=== PATIENT | female | born 1940 | race Caucasian/White ===

== ENCOUNTER 2018-01-21 13:13 | Emergency (ER) | END 2018-01-21 14:09 | disposition home or self-care (01) ==

== ENCOUNTER 2018-02-05 14:02 | Inpatient (IN) | payer MEDICARE, OTHER ==
[~2018-02-05] VITALS: Ht 165.1 cm; Wt 57.6 kg
[~2018-02-05 14:02] MED LIST: HYDR-4011 PO
[2018-02-05] MEDS ORDERED: SOD CHLORIDE 0.9% 1,000 ML IV STA (16:19)
[2018-02-05] MEDS ORDERED: ONDANSETRON 4 MG INJ IV STA (16:19)
[2018-02-05] MEDS ORDERED: CELE100C PO (17:48)
[2018-02-05] MEDS ORDERED: PANT40TA4 PO (17:49)
[2018-02-05] MEDS ORDERED: CITA20TA8 PO (17:49)
[2018-02-05] MEDS ORDERED: ROSU10TA55 PO (17:50)
[2018-02-05] MEDS ORDERED: AMIT25TA9 PO (17:50)
[2018-02-05] MEDS ORDERED: MED4DP PO (17:51)
[2018-02-05] MEDS ORDERED: LORA1TAB PO (17:51)
[2018-02-05] MEDS ORDERED: PREG50CA PO (17:52)
[2018-02-05] MEDS ORDERED: CEFTRIAXONE 1 GM/50 ML (PMX) 50 ML IVPB ONE (18:00)
--- NOTE | 2018-02-05 18:08 | ERD ---
ER Documentation Chief Complaint Chief Complaint fall this AM, dizziness, slurredspeech, confusion LWT - 2wks ago per dtr HPI 77-year-old woman presents with dizziness, generalized weakness, and confusion for the last 2-3 days. Patient also complains of left shoulder pain after bumping into the door a few times over the last couple days because of dizziness and weakness. About 3 days ago patient was given a prescription for [place] as well as pregabalin which she has been using for recent back pain. She has not used opioid analgesics for over 3 years and is generally opioid jennifer. She denies recent head or neck injury, no vomiting or diarrhea, no chest pain or shortness of breath ROS All systems reviewed and are negative except as per history of present illness. Medications Home Meds Active Scripts Hydrocodone/Acetaminophen ([place] 5-325 Tablet) 1 Each Tablet, 1 TAB PO Q6H PRN for PAIN, #7 TAB Prov:ERIKA MARSH MD 01/21/18 Reported Medications Diphenhydramine Hcl* (Benadryl*) 25 Mg Cap, 25 MG PO Q6H PRN for ITCHING, CAP 02/05/18 Pregabalin* (Lyrica*) Unknown Strength Capsule, PO, CAP 02/05/18 Methylprednisolone* (Medrol* DOSE PACK) 4 Mg/Dose-Pack Tab.ds.pk, 4 MG PO . DIRECTED, PACKET 02/05/18 Lorazepam* (Lorazepam*) 1 Mg Tablet, 1 MG PO HS PRN for NEEDED, #30 TAB 02/05/18 Rosuvastatin Calcium* (Crestor*) 10 Mg Tablet, 10 MG PO QHS, #30 TAB 02/05/18 Amitriptyline Hcl* (Amitriptyline Hcl*) 25 Mg Tablet, 25 MG PO QHS, #30 TAB 02/05/18 Citalopram Hydrobromide* (Citalopram Hydrobromide*) 20 Mg Tablet, 20 MG PO DAILY, #30 TAB 02/05/18 Pantoprazole* (Pantoprazole*) 40 Mg Tablet.dr, 40 MG PO AC BREAKFAST, TAB 02/05/18 Celecoxib* (Celebrex*) 100 Mg Capsule, 100 MG PO DAILY, CAP 02/05/18 Allergies Allergies: Coded Allergies: No Known Allergy (Unverified , 02/05/18) PMhx/Soc History of Surgery: Yes (appendectomy,cholecystectomy) Anesthesia Reaction: No Hx Neurological Disorder: No Hx Respiratory Disorders: No Hx Cardiac Disorders: Yes (hypercholesterolemia) Hx Psychiatric Problems: Yes (anxiety) Hx Miscellaneous Medical Probl: Yes (sciatica,herniated disc,dm,gerd) Hx Alcohol Use: No Hx Substance Use: No Hx Tobacco Use: No Smoking Status: Never smoker FmHx Family History: No diabetes Physical Exam Vitals Vital Signs Date Temp Pulse Resp B/P (MAP) Pulse Ox O2 O2 Flow FiO2 Time Delivery Rate 02/05/18 97.7 99 20 92/50 64 100 14:09 Physical Exam Const: No acute distress, appears dehydrated, afebrile HEENT: Dry mucous membranes, pupils equal round reactive to light, no cervical spine deformity or tenderness Resp: Clear to auscultation bilaterally Cardio: Regular rate and rhythm, no murmurs Abd: Soft, non tender, non distended. Normal bowel sounds Skin: No petechiae or rashes Back: No midline or flank tenderness Ext: No cyanosis, or edema Neur: Awake and alert x3, able to answer simple questions and follows simple commands, moving all extremities, no facial asymmetry Psych: Normal Mood and Affect Result Diagram: 02/05/18 1602 02/05/18 1602 Results 24 hrs Laboratory Tests Test 02/05/18 16:02 02/05/18 16:35 White Blood Count 21.0 10^3/ul Red Blood Count 3.50 10^6/ul Hemoglobin 11.6 g/dl Hematocrit 35.4 % Mean Corpuscular Volume 101.1 fl Mean Corpuscular Hemoglobin 33.1 pg Mean Corpuscular Hemoglobin Concent 32.8 g/dl Red Cell Distribution Width 13.6 % Platelet Count 311 10^3/UL Mean Platelet Volume 10.3 fl Immature Granulocytes % 0.700 % Neutrophils % 79.5 % Lymphocytes % 11.1 % Monocytes % 7.9 % Eosinophils % 0.5 % Basophils % 0.3 % Nucleated Red Blood Cells % 0.0 /100WBC Immature Granulocytes # 0.150 10^3/ul Neutrophils # 16.7 10^3/ul Lymphocytes # 2.3 10^3/ul Monocytes # 1.7 10^3/ul Eosinophils # 0.1 10^3/ul Basophils # 0.1 10^3/ul Nucleated Red Blood Cells # 0.0 10^3/ul Prothrombin Time 13.3 Sec Prothrombin Time Ratio 1.0 INR International Normalized Ratio 1.00 Activated Partial Thromboplast Time 26.2 Sec Sodium Level 134 mmol/L Potassium Level 4.2 mmol/L Chloride Level 97 mmol/L Carbon Dioxide Level 27 mmol/L Anion Gap 10 Blood Urea Nitrogen 22 mg/dl Creatinine 1.47 mg/dl Est Glomerular Filtrat Rate mL/min mL/min Glucose Level 108 mg/dl Calcium Level 9.4 mg/dl Total Bilirubin 0.4 mg/dl Direct Bilirubin 0.00 mg/dl Indirect Bilirubin 0.4 mg/dl Aspartate Amino Transf (AST/SGOT) 51 IU/L Alanine Aminotransferase (ALT/SGPT) 27 IU/L Alkaline Phosphatase 87 IU/L Troponin I < 0.012 ng/ml Total Protein 7.6 g/dl Albumin 3.9 g/dl Globulin 3.70 g/dl Albumin/Globulin Ratio 1.05 Lipase 89 U/L Urine Color YELLOW Urine Clarity SLIGHTLY CLOUDY Urine pH 5.0 Urine Specific [place] 1.023 Urine Ketones NEGATIVE mg/dL Urine Nitrite NEGATIVE mg/dL Urine Bilirubin NEGATIVE mg/dL Urine Urobilinogen NEGATIVE mg/dL Urine Leukocyte Esterase NEGATIVE Jose/ul Urine Microscopic RBC 3 /HPF Urine Microscopic WBC 3 /HPF Urine Bacteria FEW /HPF Urine Hyaline Casts FEW /HPF Urine Mucus FEW /HPF Urine Hemoglobin NEGATIVE mg/dL Urine Glucose NEGATIVE mg/dL Urine Total Protein 1+ mg/dl Current Medications Medications Dose Sig/Juan Start Time Status Last (Trade) Ordered Route PRN Stop Time Admin Dose Reason Admin Sodium 1,000 ml @ Q30M STAT 02/05/18 DC 02/05/18 Chloride 2,000 mls/hr IV 16:19 16:48 02/05/18 16:48 Ondansetron 4 mg ONCE STAT 02/05/18 DC 02/05/18 HCl (Zofran IV 16:19 16:48 Inj) 02/05/18 16:21 Ceftriaxone 50 ml @ ONCE ONCE 02/05/18 DC 02/05/18 Sodium 100 mls/hr IVPB 18:00 17:58 02/05/18 18:29 Procedures/MDM IV line was established patient was placed on court recording monitor rhythm strip revealed a sinus rhythm at about 90 bpm with upright P and T waves. Patient was afebrile EKG performed, read by me revealed a normal sinus rhythm at 92 bpm, normal axis, narrow QRS complex, no concerning ST elevations or depressions noted. CT brain was negative for acute bleed mass or shift. Please refer to radiologist dictation for full report. Chest X-ray 1V Interpreted by me: Soft Tissue: No acute abnormalities Bones: No acute abnormalities Mediastinum/Cardiac Silhouette/Lungs: No acute abnormalities I administered 2 L normal saline IV for dehydration and Zofran 4 mg IV for complaints of dizziness. Urine analysis was concerning for urinary tract infection and may explain her mild recent confusion so I treated her here with ceftriaxone 1 g IV. CBC reveals a leukocytosis of 21, electrolytes revealed dehydration with a BUN/creatinine of 22/1.5, liver function tests normal, troponin negative. Lactic acid level was low and I do not suspect sepsis. This is an elderly otherwise healthy patient presenting with recent dizziness, confusion, weakness. She was also dehydrated. She recently started using [place] and pregabalin multiple times daily. Both of these medications can be contributing to her symptoms. Patient will be admitted to telemetry setting for continued IV hydration and antibiotics Departure Diagnosis: Primary Impression: Sprain of left shoulder Encounter type: initial encounter Shoulder sprain type: unspecified sprain Qualified Codes: S43.402A - Unspecified sprain of left shoulder joint, initial encounter Additional Impressions: Dehydration Acute encephalopathy Acute UTI Opioid overdose Encounter type: initial encounter Injury intent: accidental or unintentional Qualified Codes: T40.2X1A - Poisoning by other opioids, accidental (unintentional), initial encounter Condition: SHANAE Whiting MD Feb 05, 2018 18:08
--- NOTE | 2018-02-05 19:54 | HP ---
Date/Time of Note Date/Time of Note DATE: 02/05/18 TIME: 19:54 Assessment/Plan VTE Prophylaxis SCD applied (from Nsg): Yes Pharmacological prophylaxis: NA/contraindicated Pharm contraindication: low risk/ambulating Lines/Catheters IV Catheter Type (from Nrsg): Saline Lock Assessment/Plan Hospital Course This is a 77-year-old female being admitted to the [facility] floor for: #1 altered mental status: At the current time patient appears to be alert and oriented x3. I did not assess her gait given her current pain at the current time. Patient is adamant that she is doing fine and that she is just stressed because her is admitted to [place] and is not doing well. At the current time I have discussed with her regarding her symptoms and what her [id number] reported. At the current time I will continue her [place] as she has pain in her left lower quadrant as well as secondary to her sciatica. I will hold off on giving her Benadryl and the pregabalin at the current time. We will reassess her pain and mental status in the a.m. At the current time though she appears to be at baseline. We will get a PT evaluation. #2 abdominal pain: Patient does have suprapubic tenderness palpation as well as left lower quadrant tenderness to palpation. She was diagnosed with urinary tract infection however her urinalysis was negative for nitrites and negative for leuks. I will obtain a CT of the abdomen and pelvis with IV contrast to further assess. She did receive ceftriaxone in the ED at the current time I will continue this. Blood cultures and urine cultures pending. #3 questionable UTI: Patient was started on ceftriaxone in the ED for UTI, however her urinalysis appears to be largely normal. However she did have a significant white blood cell count of 21,000. #4 acute kidney injury: Likely prerenal etiology secondary to mild dehydration. At the current time will monitor kidney function. She will be getting IV fluid hydration. Avoid nephrotoxic agents. #5 leukocytosis: Patient did present with an elevated white blood cell count of 21,000 and is being treated presumably for urinary tract infection. Urinalysis though appears largely normal. Will check an ESR and CRP level. I will also order a CT of the abdomen pelvis with IV contrast given her left lower quadrant pain. #6 diabetes mellitus: We will check a hemoglobin A1c, insulin sliding scale #7 depression: Patient's daughter was apparently murdered according to her which has affected her greatly. At the current time we will continue her antidepressants, I will hold though Benadryl and pregabalin at the current time given the initial symptoms of what brought her to the ER. I am hesitant to even continue her [place] however given the fact that she is reporting significant pain secondary to her sciatica I will give a try at the current time. We will put fall precautions for as well. PT evaluation. #8 sciatica: At the current time she states the O[place]ander is what helps her the most I will continue her on this while holding her Benadryl as well as her pregabalin. Will consult pain management Dr. Parikh. #9 DVT GI prophylaxis: SCDs, no GI prophylaxis indicated Further treatment strategy will be implemented as per the clinical course Result Diagram: 02/05/18 1602 02/05/18 1602 Results 24hrs Laboratory Tests Test 02/05/18 16:02 02/05/18 16:35 White Blood Count 21.0 H Red Blood Count 3.50 L Hemoglobin 11.6 L Hematocrit 35.4 L Mean Corpuscular Volume 101.1 H Mean Corpuscular Hemoglobin 33.1 H Mean Corpuscular Hemoglobin Concent 32.8 Red Cell Distribution Width 13.6 Platelet Count 311 Mean Platelet Volume 10.3 Immature Granulocytes % 0.700 H Neutrophils % 79.5 H Lymphocytes % 11.1 L Monocytes % 7.9 Eosinophils % 0.5 Basophils % 0.3 Nucleated Red Blood Cells % 0.0 Immature Granulocytes # 0.150 H Neutrophils # 16.7 H Lymphocytes # 2.3 Monocytes # 1.7 H Eosinophils # 0.1 Basophils # 0.1 Nucleated Red Blood Cells # 0.0 Prothrombin Time 13.3 Prothrombin Time Ratio 1.0 INR International Normalized Ratio 1.00 Activated Partial Thromboplast Time 26.2 Sodium Level 134 L Potassium Level 4.2 Chloride Level 97 Carbon Dioxide Level 27 Anion Gap 10 Blood Urea Nitrogen 22 H Creatinine 1.47 H Est Glomerular Filtrat Rate mL/min Glucose Level 108 Calcium Level 9.4 Total Bilirubin 0.4 Direct Bilirubin 0.00 Indirect Bilirubin 0.4 Aspartate Amino Transf (AST/SGOT) 51 H Alanine Aminotransferase (ALT/SGPT) 27 Alkaline Phosphatase 87 Troponin I < 0.012 Total Protein 7.6 Albumin 3.9 Globulin 3.70 H Albumin/Globulin Ratio 1.05 Lipase 89 Urine Color YELLOW Urine Clarity SLIGHTLY CLOUDY A Urine pH 5.0 Urine Specific [place] 1.023 Urine Ketones NEGATIVE Urine Nitrite NEGATIVE Urine Bilirubin NEGATIVE Urine Urobilinogen NEGATIVE Urine Leukocyte Esterase NEGATIVE Urine Microscopic RBC 3 Urine Microscopic WBC 3 Urine Bacteria FEW A Urine Hyaline Casts FEW A Urine Mucus FEW A Urine Hemoglobin NEGATIVE Urine Glucose NEGATIVE Urine Total Protein 1+ H HPI/ROS Admit Date/Time Admit Date/Time Feb 05, 2018 at 18:44 Hx of Present Illness Chief complaint: Dizziness generalized weakness, confusion 77-year-old woman presents with dizziness, generalized weakness, and confusion for the last 2-3 days. Patient also complains of left shoulder pain after bumping into the door a few times over the last couple days because of dizziness and weakness. About 3 days ago patient was given a prescription for [place] as well as pregabalin which she has been using for recent back pain. She has not used opioid analgesics for over 3 years and is generally opioid jennifer. She denies recent head or neck injury, no vomiting or diarrhea, no chest pain or shortness of breath. After being admitted patient continued to demand her O[place] as well as her Benadryl and Ativan as she has been dealing with a lot of anxiety all her life secondary to the of her daughter as well as regarding her sciatica. Patient was very upset that she was not receiving all of her medications. I had an extensive discussion with the patient at the bedside at [facility] time patient was alert and oriented x3. She did report that she has been under stress as she is worried about her who is in [place]. At the current time she does appear awake and alert and at what appears to be her baseline. I have continue the Ostrander for her, however I will hold off on the pregabalin at the current time and the Benadryl. Allergies: NKDA Medications: See APR ROS Const: As per HPI Eyes : No pain discharge or redness or change in visual acuity ENT: No pain, sore throat, congestion, congestion, dysphagia or discharge Respiratory: No shortness of breath, cough, sputum, wheezing, or pleuritic pain Cardiovascular: No chest pain, palpitation, PND, or edema GI : no change in appetite, abdominal pain, nausea, vomiting, diarrhea, constipation, or change in the color his stool Genitourinary: No dysuria, hematuria, flank pain , discharge or CVA tenderness Musculoskeletal: As per HPI Skin: No rash, bruising or hives Neuro: As per HPI Endocrine: No polyuria, polydipsia, temperature intolerance Psych: No hallucination, depression, anxiety or suicidal ideation PMH/Family/Social Past Medical History Sciatica, anxiety, depression Coded Allergies: No Known Allergy (Unverified , 02/05/18) Past Surgical History Hysterectomy, appendectomy Family History Significant Family History: no pertinent family hx Social History Alcohol Use: none Smoking Status: Never smoker Drug Use: none Exam/Review of Systems Vital Signs Vitals Vital Signs Date Temp Pulse Resp B/P (MAP) Pulse Ox O2 O2 Flow FiO2 Time Delivery Rate 02/05/18 92 13 120/49 100 Nasal 3.0 19:20 (72) Cannula 02/05/18 97.7 14:09 Exam Exam General: Patient is a pleasant female currently lying in bed in distress from her left lower quadrant pain as well as her sciatic nerve pain HEENT: Atraumatic, normocephalic. The pupils are equal, round and reactive. Extraocular motor are intact, mucous membranes dry Neck: Supple with full range of motion. No rigidity or meningismus Chest: Nontender Lungs: Clear to auscultation bilaterally no crackles rales or wheezing Heart: Normal S1-S2, Regular rhythm and rate. No murmur, S3, or S4 Abdomen: Soft , tenderness to palpation over the left abdominal quadrant as well as suprapubic area nondistended , bowel sounds are present. No guarding no rebound tenderness , Extremities: Normal to inspection, no edema no cyanosis Musculoskeletal: Right positive straight leg test Neurologic: Normal mental status, alert and oriented x3, speech normal, cranial nerves II through XII are intact, motor and sensory are intact, Additional Comments PROCEDURE: CT head CLINICAL INDICATION: Headache TECHNIQUE: Contiguous 2.5 mm axial images were obtained from the vertex to the skull base. No intravenous contrast was administered. The calculated dose length product (DLP) = 634.23 mGy-cm. CTDlvol = 39.46 mGy. One or more of the following dose reduction techniques were used: Automated exposure control, adjustment of the mA and or KV according to patient size, or use of iterative reconstruction technique. DICOM images are available. COMPARISON: None FINDINGS: There is a vague area of low attenuation involving the right frontal deep white matter which may represent subacute to old area of infarction. There is no acute intracranial hemorrhage or acute territorial infarct. No mass or mass effect is seen on this noncontrast study. There is age appropriate cortical and central atrophy. Ventricles are normal in size for the degree of atrophy. Mild to moderate small vessel ischemic changes in the periventricular white matter. Visualized paranasal sinuses are normally aerated. The bony calvarium is u nremarkable. There is moderate bilateral carotid calcification. IMPRESSION: 1. No acute intracranial hemorrhage or acute territorial infarct. 2. Questionable subacute to old right frontal deep white matter infarct. If indicated this can be better evaluated with MRI 3. Age related atrophy and small vessel ischemic change. 4. Cerebral arterial sclerosis RPTAT: HH .Wesley Sunshine MD, MD Date Time Electronically viewed and signed by .Wesley Sunshine MD, MD on 02/05/2018 16:51 .W/ CC: SHANAE HODGSON MD [id number] PROCEDURE: XR Chest. CLINICAL INDICATION: Chest pain TECHNIQUE: Single frontal radiograph of the chest. COMPARISON: No prior FINDINGS: The lungs are clear. No pleural effusion. No pneumothorax. The cardiomediastinal silhouette is unremarkable. Vascular calcifications of the aorta are present compatible with ather osclerosis. IMPRESSION: No acute air space infiltrates. RPTAT: AADD .Edd Lopez MD, MD Date Time Electronically viewed and signed by .Edd Lopez MD, on 02/05/2018 16:42 .B/ CC: SHANAE HODGSON MD [id number] SCOOBY GARNER Feb 05, 2018 19:54
[2018-02-05] MEDS ORDERED: ACETAMINOPHEN 325 MG TAB PO PRN (20:00)
[2018-02-05] MEDS ORDERED: NACL 0.9% 3 ML SYG IV SCH (20:00)
[2018-02-05 21:47] VITALS: Ht 165.1 cm; Wt 57.6 kg
[2018-02-05] MEDS ORDERED: BEN25 PO (22:06)
[2018-02-05 22:20] VITALS: BP_SYST 113; BP_SYST 126; BP_DIAS 59; BP_DIAS 60; PULSE 61; PULSE 96; RESP 18
--- NOTE | 2018-02-05 22:36 | NUR ---
Pt admitted onto unit around 1999 for UTI and dizziness. Inventory of pt's belongings done. Oriented pt to room and surroundings. Pictures taken of pt's heels and sacrococcyx. Fall precautions observed.
--- NOTE | 2018-02-06 00:33 | NUR ---
Spoke to Dr Nicole regarding pt's pain. made aware that Tylenol was given at 0017, Dr said it is okay to give [place] now. Will continue to monitor.
[2018-02-06] MEDS: HYDROCODONE/APAP (5/325) TAB PO PRN ×4 (00:41→21:26)
[2018-02-06 02:45] VITALS: BP 136/62; PULSE 103; RESP 18
[2018-02-06] MEDS ORDERED: morphine 4 MG/ML VIAL IV ONE (04:05)
[2018-02-06] MEDS ORDERED: HYDROCODONE/APAP (5/325) TAB PO PRN (04:30)
[2018-02-06] MEDS ORDERED: LORAZEPAM 1 MG TAB PO PRN (04:30)
[2018-02-06] MEDS: PANTOPRAZOLE (EC) 40 MG TAB PO SCH (06:34)
--- NOTE | 2018-02-06 06:46 | NUR ---
VS are stable .Pt A&O x4. Pt c/o pain and medicated with PRN pain med. No acute changes or s/s of respiratory distress throughout shift. Hourly rounding provided. Fall precautions observed with call light within reach. composition worker consult ordered due to pt being sad that her is at [place] by himself and not doing well; pt would like to visit him if possible. Will endorse to oncoming nurse continuity of care.
[2018-02-06 07:59] VITALS: BP 142/65; PULSE 103; RESP 18
[2018-02-06] MEDS ORDERED: CELECOXIB 100 MG CAP PO SCH (09:00)
[2018-02-06] MEDS ORDERED: SOD CHLORIDE 0.9% 100 ML ONE (09:33)
[2018-02-06] MEDS ORDERED: IOHEXOL 300MG/ML 150 ML BTL ONE (09:33)
[2018-02-06] MEDS: CITALOPRAM 20 MG TAB PO SCH (09:36)
--- NOTE | 2018-02-06 10:30 | NUR ---
COMPLETED CT ABDOMEN.
--- NOTE | 2018-02-06 10:54 | PN ---
Date/Time of Note Date/Time of Note DATE: 02/06/18 TIME: 10:53 Assessment/Plan VTE Prophylaxis SCD applied (from Nsg): Yes Pharmacological prophylaxis: heparin Lines/Catheters IV Catheter Type (from Nrsg): [place] Assessment/Plan Result Diagram: 02/06/18 0432 02/06/18 0432 Results 24hrs Laboratory Tests Test 02/05/18 16:02 02/05/18 16:35 02/05/18 20:00 02/05/18 20:29 White Blood 21.0 H Count Red Blood Count 3.50 L Hemoglobin 11.6 L Hematocrit 35.4 L Mean 101.1 H Corpuscular Volume Mean 33.1 H Corpuscular Hemoglobin Mean 32.8 Corpuscular Hemoglobin Conc ent Red Cell 13.6 Distribution Width Platelet Count 311 Mean Platelet 10.3 Volume Immature 0.700 H Granulocytes % Neutrophils % 79.5 H Lymphocytes % 11.1 L Monocytes % 7.9 Eosinophils % 0.5 Basophils % 0.3 Nucleated Red 0.0 Blood Cells % Immature 0.150 H Granulocytes # Neutrophils # 16.7 H Lymphocytes # 2.3 Monocytes # 1.7 H Eosinophils # 0.1 Basophils # 0.1 Nucleated Red 0.0 Blood Cells # Prothrombin 13.3 Time Prothrombin 1.0 Time Ratio INR 1.00 International Normalized Rati o Activated 26.2 Partial Thrombo plast Time Sodium Level 134 L Potassium Level 4.2 Chloride Level 97 Carbon Dioxide 27 Level Anion Gap 10 Blood Urea 22 H Nitrogen Creatinine 1.47 H Est Glomerular Filtrat Rate mL/min Glucose Level 108 Calcium Level 9.4 Total Bilirubin 0.4 Direct 0.00 Bilirubin Indirect 0.4 Bilirubin Aspartate Amino 51 H Transf (AST/SGO T) Alanine 27 Aminotransferas e (ALT/SGPT) Alkaline 87 Phosphatase Troponin I < 0.012 Total Protein 7.6 Albumin 3.9 Globulin 3.70 H Albumin/Globuli 1.05 n Ratio Lipase 89 Urine Color YELLOW Urine Clarity SLIGHTLY CLOUDY A Urine pH 5.0 Urine Specific 1.023 [place] Urine Ketones NEGATIVE Urine Nitrite NEGATIVE Urine Bilirubin NEGATIVE Urine NEGATIVE Urobilinogen Urine Leukocyte NEGATIVE Esterase Urine 3 Microscopic RBC Urine 3 Microscopic WBC Urine Bacteria FEW A Urine Hyaline FEW A Casts Urine Mucus FEW A Urine NEGATIVE Hemoglobin Urine Glucose NEGATIVE Urine Total 1+ H Protein Erythrocyte 40 H Sedimentation Rate Lactic Acid 1.3 Level C-Reactive 26.5 H Protein Test 02/06/18 04:32 White Blood 16.5 #H Count Red Blood Count 2.89 L Hemoglobin 9.6 L Hematocrit 29.3 L Mean 101.4 H Corpuscular Volume Mean 33.2 H Corpuscular Hemoglobin Mean 32.8 Corpuscular Hemoglobin Conc ent Red Cell 13.2 Distribution Width Platelet Count 287 Mean Platelet 10.1 Volume Immature 0.500 H Granulocytes % Neutrophils % 75.6 Lymphocytes % 14.7 L Monocytes % 7.7 Eosinophils % 1.2 Basophils % 0.3 Nucleated Red 0.0 Blood Cells % Immature 0.090 H Granulocytes # Neutrophils # 12.5 H Lymphocytes # 2.4 Monocytes # 1.3 H Eosinophils # 0.2 Basophils # 0.1 Nucleated Red 0.0 Blood Cells # Sodium Level 137 Potassium Level 4.2 Chloride Level 102 Carbon Dioxide 25 Level Anion Gap 10 Blood Urea 17 Nitrogen Creatinine 0.91 Est Glomerular Filtrat Rate mL/min Glucose Level 74 Hemoglobin A1c 5.7 Calcium Level 8.5 Magnesium Level 1.7 Total Bilirubin 0.1 L Direct 0.00 Bilirubin Indirect 0.1 Bilirubin Aspartate Amino 33 Transf (AST/SGO T) Alanine 36 Aminotransferas e (ALT/SGPT) Alkaline 84 Phosphatase Total Protein 5.4 #L Albumin 2.9 #L Globulin 2.50 Albumin/Globuli 1.16 n Ratio Triglycerides 107 Level Cholesterol 114 Level LDL 46 Cholesterol, Calculated HDL Cholesterol 47 Cholesterol/HDL 2.4 Ratio Thyroid 1.680 Stimulating Hormone (TSH) Free Thyroxine 3.33 Index Thyroxine (T4) 7.7 Triiodothyronin 43.3 H e (T3) Uptake Subjective 24 Hr Interval Summary Free Text/Dictation subjective: feels better after clear liquid diet, anxious about 's illness in [place] objective: Constitutional: alert, oriented, elderly, anxious Head: atraumatic, normocephalic Neck: non-tender, supple Respiratory: clear to auscultation Cardiovascular: regular rate and rhythm Gastrointestinal: S/ Lmid and lower quadrant tenderness / ND / +BS Extremities: no edema, good radial pulses assessment and plan: 1. Sepsis with abdominal pain secondary to acute colitis and urinary tract infection 2. Acute colitis likely contributing to #1 -Left-sided, radiology notes concern for possible ischemic colitis -We will get GI consult, stool OB -Continue antibiotics 3. Acute renal insufficiency: Resolved 4. Cholelithiasis without cholecystitis 5. Large hiatal hernia 6. Chronic megaloblastic anemia 7. Mild alteration in mental status, now resolved -Evidence of Chronic versus subacute CVA on CT -Stroke workup to include 2D echo with bubble study, carotid findings, PT eval 8.Depression home meds, monitoring, patient is to be allowed to go visit -her children will be taking her home with them after this Continue supportive care Exam/Review of Systems Vital Signs Vitals Vital Signs Date Temp Pulse Resp B/P (MAP) Pulse Ox O2 O2 Flow FiO2 Time Delivery Rate 02/06/18 98.2 103 18 142/65 97 07:59 (90) 02/05/18 Nasal 3.0 19:20 Cannula Medications Medications Current Medications IV Flush (NS 3 ml) 3 ml PER PROTOCOL IV ; Start 02/05/18 at 20:00 Ondansetron HCl (Zofran Inj) 4 mg Q6H PRN IV NAUSEA AND/OR VOMITING; Start 02/05/18 at 20:00 Acetaminophen (Tylenol Tab) 650 mg Q6H PRN PO PAIN LEVEL 1-3 OR FEVER Last administered on 02/06/18at 00:17; Admin Dose 650 MG; Start 02/05/18 at 20:00 Acetaminophen/ Hydrocodone Bitart ([place] (5/325)) 1 tab Q6H PRN PO MODERATE P AIN LEVEL 4-6 Last administered on 02/06/18at 06:37; Admin Dose 1 TAB; Start 02/06/18 at 00:30 Amitriptyline HCl (Elavil) 25 mg QHS PO ; Start 02/06/18 at 21:00 Celecoxib (Celebrex) 100 mg DAILY PO Last administered on 02/06/18at 08:48; Admin Dose 100 MG; Start 02/06/18 at 09:00 Citalopram Hydrobromide (Celexa) 20 mg DAILY PO Last administered on 02/06/18at 09:36; Admin Dose 20 MG; Start 02/06/18 at 09:00 Acetaminophen/ Hydrocodone Bitart ([place] (5/325)) 1 tab Q6H PRN PO PAIN; Start 02/06/18 at 04:30 Lorazepam (Ativan) 1 mg HS PRN PO NEEDED; Start 02/06/18 at 04:30 Pantoprazole (Protonix Tab) 40 mg AC BREAKFAST PO Last administered on 02/06/18at 06:34; Admin Dose 40 MG; Start 02/06/18 at 07:30 Ceftriaxone Sodium 50 ml @ 100 mls/hr Q24H IVPB ; Start 02/06/18 at 18:00 SILVIA POOLE Feb 06, 2018 10:54
--- NOTE | 2018-02-06 11:00 | NUR ---
PT EVALUATION Therapy day number 1 Evaluation Start Time 11:00 Evaluation End Time 12:00 Evaluation Total Time 60 min Subjective Current complaint of pain Pain Scale NUMERIC Pain Intensity 5 (0-10) Patient Stated Goal for Pain Relief 0 (0-10) Pain Level Comment reports has radicular pain from right buttocks down right LE with WB Exercise Assessment Label Bilat Lower Extremity Exercise Type Active ROM Additional Exercise Comments supine: AP's, quad/glut sets, heelslides; seated: LAQ's Supine to Sit Contact Guard Assist Transfer Sit to Stand Ability Contact Guard Assist Bed Mobility Sit to Supine Contact Guard Assist Sitting Tolerance 10 min Gait Assist Levels Contact Guard Assist Assistive Devices None Front Wheel Walker Ambulation Distance 200 feet Additional Gait Comments slight antalgic gait,improved with progression, able to ambulate w/o FWW Weight Bearing Assessment Label Bilat Lower Extremity Weight Bearing Status Full Weight Bearing Static Sitting Balance Good Dynamic Sitting Balance Good Standing Static Balance Fair plus Dynamic Standing Balance Fair Safety Judgement Fair Activity Tolerance Good Post Treatment Pain Intensity 3 0-10 Additional Post Treatment Comment see PT Notes Total Minutes 60 Total Units 4 PT Technical Record Comment PT EVALUATION M.D. order received for PT eval for gait assessment with FWB. Consulted with RN-Blanca and MARBELLA to see patient. Patient is alert and oriented x 4. Patient agreed to PT evaluation. Patient reported has "sciatica " pain down right LE with weight bearing at 5/10 pain level. HPI: Patient is a 77-year-old woman who presented with dizziness, generalized weakness, and confusion for the last 2-3 days. Patient also complains of left shoulder pain after bumping into the door a few times over the last couple days because of dizziness and weakness. Admitted for further eval and treatment. PMhx: appendectomy,cholecystectomy,hypercholesterolemia,anxiety, sciatica,herniated disc dse.,gerd. PLOF: Independent with all ADL's, ambulatory without A.D. but used FWW (belonging to her ) recently due to gait instability. Was taking care/visiting her who is in the hospital prior to admission. CLOF: Supine: Thera ex to both LE. Bed mobility/Transfers: CGA. Gait trained with CGA with FWW x 100 feet then patient reported decreased pain to 3/10 pain level on right LE and progressed to ambulation without A.D. x 100 feet. Noted slight antalgic gait pattern which reduced with gait progression.BTB with SBA. Bed alarm activated, call light at side, all needs met. Patient safe to ambulate with FWW with nursing supervision. RN notified. Recommendation: PT 5x/wk x 1 week to improve functional independence and safety with mobility with/without FWW. Patient needs to use FWW initially, and improve stability, then able to walk without A.D. Patient will need FWW for home use if discharged home. Recommend home health PT also to continue to regain stability and independence with functional mobility and gait.
--- NOTE | 2018-02-06 11:01 | NUR ---
SS Note: Consult SW received order pt very sad she was admitted and cannot be with spouse who is a pt at [facility]. Pt would like to visit spouse if possible. The patient is a 77-year-old female [facility] due to altered mental status, abdominal pain, and questionable UTI, per record. SW met with pt to provide support, complete psychosocial assessment, and link pt to appropriate resources as needed. Pt awake, alert, and oriented x4. She was very pleasant. Pt reported having a headache. She opened up about concerns regarding spouse health and was tearful. Pt stated Barry has been in [facility] since January 10 and is in end of life stage. Pt worried and wants to visit her spouse. Per pt, her family will be visiting her and spouse over the weekend from [place], [place]. Pt is and has one living son. Pt stated she has an AHCD in place and has designated son, Bhargav Lopez , as primary surrogate decision maker/spokesperson. Pt confirmed address on facesheet and stated she lives in [place] with spouse. Pt reported adequate social support. Pt is active, drives, and is independent with ADL's. Pt denied use of DME. Pt has medicare and [employer] HMO insurance and has a PCP. Pt reported hx of depression and on Zelexa prescribed by PCP. SW introduced self and the role of the manager social. SW provided active listening, emotional support, psychoeducation, and reassurance. SW discussed case with attending, Dr. Drew who will check on pt and if appropriate write order for permission to visit spouse. RN and pt aware.
[2018-02-06] MEDS: PIPER-TAZO 3.375 GM IV (PMX) 100 ML IVPB SCH ×2 (13:28→21:10)
--- NOTE | 2018-02-06 14:00 | NUR ---
STARTED ON CLEAR LIQUIDS DIET AND TOLERATED WELL.
--- NOTE | 2018-02-06 17:20 | CONS ---
DATE OF ADMISSION: 02/05/2018 DATE OF CONSULTATION: 02/06/2018 TYPE OF CONSULTATION: Infectious disease. REASON FOR CONSULTATION: Antibiotic management. HISTORY OF PRESENT ILLNESS: Amalia Lopez is a 77-year-old female who was admitted to med/surg with altered mental status and is being seen for antibiotic management. Problems include altered mental s tatus. The patient appears to be alert and oriented at present. Her was admitted to [facility], not doing well. She is on [place] for pain in the left lower quadrant as well as secondary to sciatic a. She also has abdominal pain, suprapubic tenderness to palpation as well as lower quadrant tendern ess to palpation. She presented to the emergency room with slurred speech, generalized weakness and confusion. She complained of left shoulder pain after bumping into a door, cluster of dizziness and weakness. As noted, she is on [place] for sciatica. She has a history of appendectomy, cholecystectom y. She has hypercholesterolemia, sciatica, herniated disk, diabetes and GERD. On admission, her whi te count is 21, H and H is 7.6 and 35.4, platelet count 311,000. On 02/06/2018, white count 16.5. U rine is negative for leukocyte esterase and for nitrite and has only 3 white cells per high powered f ield. Chest x-ray: No acute infiltrates. Abdominal pelvic CT scan: Acute colitis involving the le ft colon with differential diagnosis including infectious colitis. Ischemic colitis is also on the d ifferential. Multiple sigmoid diverticulosis, small amount of free fluid, nonobstructive 7 mm stone in the lower pole of the right kidney, cholelithiasis versus gallbladder sludge, trace left-sided ple ural effusion, large hiatal hernia, convex right scoliosis of the lumbar spine with associated multil evel degenerative disk disease. On microbiology, she grew mixed gram-negative and positive organisms . The patient was initially started on ceftriaxone and then switched over to Zosyn. White count tod ay was 16.5. She has some acute kidney injury, likely prerenal secondary to mild dehydration. BUN a nd creatinine is 22/1.4. Leukocytosis as noted, which is diminishing. Diabetes mellitus, depression , sciatica, DVT. PAST MEDICAL HISTORY: As outlined. She also had a hysterectomy. FAMILY HISTORY: Noncontributory. SOCIAL HISTORY: She does not smoke, drink or abuse drugs. PHYSICAL EXAMINATION: GENERAL: She is a pleasant female lying in bed complaining of pain in her left lower quadrant as wel l as sciatic pain. SKIN: Without generalized rash. HEENT: Within normal limits. NECK: Supple. LYMPH NODES: None palpable. CHEST: Decreased breath sounds at the bases. HEART: Without murmur or gallop. ABDOMEN: Soft, nontender without organosplenomegaly or masses. She has suprapubic tenderness, thoug h she has bowel sounds and she has no rebound. EXTREMITIES: Without cyanosis, clubbing or edema. RECTAL AND GENITAL: Deferred. NEUROLOGIC: No focal neurological abnormality. IMAGING STUDIES: CT scan of the brain showed no acute intracranial hemorrhage or acute territorial i nfarct, questionable subacute old right frontal deep white matter infarct, age-related atrophy and sm all vessel ischemic changes. IMPRESSION AND PLAN: The patient appears to have colitis, etiology of which is unclear. She does no t have diarrhea. We have to consider Clostridium difficile in the differential. She is on a clear d iet on Zosyn. We will order a stool for Clostridium difficile if she has diarrhea. I will dictate m y findings to the hospitalist. Dictated By: GILBERT PAREDES MD, JD/JE Conf#: [id number] DID#: [id number] CC: LILY SERNA MD; MARGARITA RICHARDSON MD;*[facility]*
[2018-02-06] MEDS ORDERED: MAGNESIUM CITRATE 300 ML BTL PO ONE ×2 (17:30→20:00)
[2018-02-06] MEDS ORDERED: CEFTRIAXONE 1 GM/50 ML (PMX) 50 ML IVPB SCH (18:00)
--- NOTE | 2018-02-06 18:20 | NUR ---
PATIENT CONSULTED BY DR SERNA FOR ? ISCHEMIC BOWELS.PATIENT UNDECIDED FOR COLONOSCOPY.PATIENT TO DECIDE LATER PER DR SERNA.
--- NOTE | 2018-02-06 20:30 | NUR ---
Pt agreed to have colonoscopy done tomorrow. Notified Dr Mata and orders received. Will continue to monitor.
[2018-02-06 20:36] VITALS: BP 135/61; PULSE 96; RESP 18
[2018-02-06] MEDS: LACTULOSE 30ML CUP PO SCH (21:10)
[2018-02-06] MEDS: ATORVASTATIN 10 MG TAB PO SCH (21:10)
[2018-02-06] MEDS: AMITRIPTYLINE 25 MG TAB PO SCH (21:10)
--- NOTE | 2018-02-06 23:31 | CONS ---
DATE OF ADMISSION: 02/05/2018 DATE OF CONSULTATION: Dear Dr. Garner: Thank you for asking me to see Mrs. Lopez in GI consultation. The patient, as you know, is a 77-year-old white female who developed suprapubic pain 2 days ago. In fact, 3 days ago, she developed suprapubic pain and she had bloody stools on 3 occasions; and hence, she got admitted to the hospital. CAT scan of the abdomen shows evidence of ischemic colitis of the left colon. She also has multiple sigmoid diverticulosis, kidney stone noted on the right kidney, g allstones also noted, large hiatal hernia is noted. However, she has not had any bleeding today, but her hemoglobin was 11.6 yesterday, today is 9.6. Shaye araujo has other medical problems which include gallstones and diverticulosis as I mentioned earlier on. The other review of system indicates some kind of a kidney injury at this time. She has diabetes, de pression, sciatica. PAST MEDICAL HISTORY: She had some kind of surgical interventions, hysterectomy and appendectomy. PHYSICAL EXAMINATION: GENERAL: The patient is a 77-year-old white female who at this time is alert. She is moderately wel l built. VITAL SIGNS: Afebrile, temperature 98.2, blood pressure 142/65. CARDIOVASCULAR: Normal heart sounds. RESPIRATORY: Normal breath sounds. ABDOMEN: Showed she has suprapubic tenderness. LABORATORY WORKUP: Hemoglobin is 9.6, which came down from 11.6. WBC is 16,500 from 21,000. Potass ium 4.2, alkaline phosphatase 84, lipase 89, albumin 2.9. The CAT scan of the abdomen, as I already mentioned, left-sided colitis. CLINICAL IMPRESSION: The findings are rather consistent with ischemic colitis. Doubt colonic neopla sm. Doubt diverticulitis. Doubt infectious colitis. Clostridium difficile colitis is a possibility, but I doubt. PLAN: At this time, I would recommend a colonoscopy, stool for C. difficile toxin, and stool for cul ture. Once again, doctor, thank you for this consultation. Dictated By: LILY LO/NTS Conf#: [id number] DID#: [id number] CC: MARGARITA RICHARDSON MD; SCOOBY GARNER MD;*[facility]*
[2018-02-07] VITALS (11 sets, daily range): BP systolic 107–163; BP diastolic 58–85; PULSE 63–102; RESP 16–28
[2018-02-07] MEDS: ONDANSETRON 4 MG INJ IV PRN ×2 (00:11→13:23)
[2018-02-07] MEDS: LACTULOSE 30ML CUP PO SCH ×3 (01:15→08:20)
[2018-02-07] MEDS: PIPER-TAZO 3.375 GM IV (PMX) 100 ML IVPB SCH ×3 (05:30→22:47)
[2018-02-07] MEDS: PANTOPRAZOLE (EC) 40 MG TAB PO SCH (05:36)
--- NOTE | 2018-02-07 06:11 | NUR ---
VS are stable. No s/s of respiratory distress or s/s of bleeding. Stool collected. Fall precautions observed with call light within reach. Pt planned to have colonoscopy done today and consent signed. Pt refused 3rd dose of Lactulose despite education. Did tap water enema x4 and BM still not clear; Pt did not want to do a 5th water enema at this time. She said, "I really can't do another one right now."; Will endorse to oncoming nurse. Addendum: 02/07/18 at 0616 by TINO GUTIÉRREZ RN Isolation precautions observed for R/O Cdiff
[2018-02-07] MEDS ORDERED: LIDOCAINE 100 MG SYRINGE ONE (07:00)
[2018-02-07] MEDS: CITALOPRAM 20 MG TAB PO SCH (09:00)
[2018-02-07] MEDS: ASPIRIN (EC) 81 MG TAB PO SCH (09:00)
--- NOTE | 2018-02-07 09:00 | NUR ---
NPO observed, tap water enema given with yellowish watery output. For colonoscopy today.
[2018-02-07] MEDS ORDERED: PROPOFOL 20 ML ONE (12:45)
[2018-02-07] MEDS ORDERED: FENTAnyl 50 MCG/ML VIAL ONE (13:26)
[2018-02-07] MEDS ORDERED: FENTAnyl 50 MCG/ML VIAL IV ONE (13:30)
--- NOTE | 2018-02-07 13:50 | NUR ---
NURSING RR Pt transfer back to room in stable condition ,report given to Gina GONZALEZ .dr Mata made aware of patient complaining sever abdominal pain stated " she had 12 colonoscopies done and never had such pain" no new orders given .
[2018-02-07] MEDS: HYDROCODONE/APAP (5/325) TAB PO PRN ×2 (14:26→20:23)
--- NOTE | 2018-02-07 15:57 | CONS ---
Date/Time of Note Date/Time of Note DATE: 02/07/18 TIME: 15:57 Assessment/Plan Assessment/Plan Hospital Course ID PROGRESS NOTE CURRENT ABX: DAY # 3=> Zosyn s/p Ceftriaxone 24H INTERVAL SUMMARY * She feels much better in the last 4 hours, no fevers, pain is relieved * s/p COLO today w/Dr. Mata, patient tells me he recommended CTA to check for ischemic bowel * Patient cannot tolerate Flagyl po had that in the past MICRO * 02/06/18 C.Diff (-) * 02/05/18 BCx (-) * 02/05/18 Urine Cx: URINE CULTURE Final Organism 1 MIXED GRAM NEG & POS ORGANISMS COLONY COUNT 20,000 - 30,000 CFU/ml PHYSICAL EXAMINATION: GENERAL: Afebrile, VSS, HEENT: AT, NC, anicteric NECK: Supple, trach CHEST: Equal chest rise bilaterally, without dyspnea on observation HEART: Pulse RRR ABDOMEN: Soft / NT EXTREMITIES: Warm, dry SKIN: No rash, no diaphoresis ID ASSESSMENT 77 yo F admit with: 1. Sepsis on admission with tachycardia, leukocytosis, associated with abdominal pain secondary to acute colitis and urinary tract infection 2. Acute colitis likely contributing to #1 * Left-sided, radiology notes concern for possible ischemic colitis 3. Acute renal insufficiency: Resolved 4. Cholelithiasis without cholecystitis 5. Large hiatal hernia 6. Chronic megaloblastic anemia 7. Mild alteration in mental status, now resolved -Evidence of Chronic versus subacute CVA on CT * 02/06/18 Carotid US: No evidence for hemodynamically significant stenosis or occlusion. Antegrade flow seen within the vertebral arteries bilaterally. 8.Depression 9. Convex right scoliosis of the lumbar spine with associated multilevel degenerative disc disease. 10. Nonobstructive 7 mm stone in the lower pole of right kidney. ABX ALLERGIES: NKDA INVASIVES: PI CURRENT ABX: DAY # 3=> Zosyn s/p Ceftriaxone ID RECOMMENDATIONS/PLAN: 1. Continue current ABX while inhouse 2. When cleared for DC home, may DC on Augmentin 875mg po Q12 to complete 7 days * She does not tolerate PO Flagyl * Quinolones relatively contraindicated due to QT Prolongation and durg drug interaction w/Psych meds Result Diagram: 02/07/18 0750 02/07/18 0750 Results 24hrs Laboratory Tests Test 02/07/18 00:03 02/07/18 07:50 02/07/18 12:28 Stool Occult Blood POSITIVE White Blood Count 15.9 H Red Blood Count 2.90 L Hemoglobin 9.6 L Hematocrit 28.2 L Mean Corpuscular Volume 97.2 Mean Corpuscular Hemoglobin 33.1 H Mean Corpuscular 34.0 Hemoglobin Concent Red Cell Distribution Width 12.8 Platelet Count 313 Mean Platelet Volume 10.1 Immature Granulocytes % 0.800 H Neutrophils % 75.1 Lymphocytes % 10.3 L Monocytes % 12.8 H Eosinophils % 0.7 Basophils % 0.3 Nucleated Red Blood Cells % 0.0 Immature Granulocytes # 0.120 H Neutrophils # 11.9 H Lymphocytes # 1.6 Monocytes # 2.0 H Eosinophils # 0.1 Basophils # 0.1 Nucleated Red Blood Cells # 0.0 Sodium Level 138 Potassium Level 3.7 Chloride Level 99 Carbon Dioxide Level 32 H Anion Gap 7 Blood Urea Nitrogen 9 Creatinine 0.80 Est Glomerular Filtrat Rate mL/min Glucose Level 125 # Calcium Level 8.5 Magnesium Level 2.3 Iron Level 14 L Total Iron Binding Capacity 238 L Percent Iron Saturation 6 L Vitamin B12 Level > 1000 H Folate 19.5 Bedside Glucose 94 Consultation Date/Type/Reason Admit Date/Time Feb 05, 2018 at 18:44 Initial Consult Date Exam/Review of Systems Vital Signs Vitals Vital Signs Date Temp Pulse Resp B/P (MAP) Pulse Ox O2 O2 Flow FiO2 Time Delivery Rate 02/07/18 98.5 63 20 149/67 97 Room Air 14:44 (94) 02/05/18 3.0 19:20 Intake and Output 02/06/18 02/06/18 02/07/18 1515:00 23:00 07:00 IntakeIntake Total 340 ml 440 ml 420 ml BalanceBalance 340 ml 440 ml 420 ml Medications Medications Current Medications IV Flush (NS 3 ml) 3 ml PER PROTOCOL IV ; Start 02/05/18 at 20:00 Ondansetron HCl (Zofran Inj) 4 mg Q6H PRN IV NAUSEA AND/OR VOMITING Last administered on 02/07/18at 13:23; Admin Dose 4 MG; Start 02/05/18 at 20:00 Acetaminophen (Tylenol Tab) 650 mg Q6H PRN PO PAIN LEVEL 1-3 OR FEVER Last administered on 02/06/18 00:17; Admin Dose 650 MG; Start 02/05/18 at 20:00 Amitriptyline HCl (Elavil) 25 mg QHS PO Last administered on 02/06/18 21:10; Admin Dose 25 MG; Start 02/06/18 at 21:00 Citalopram Hydrobromide (Celexa) 20 mg DAILY PO Last administered on 02/06/18 09:36; Admin Dose 20 MG; Start 02/06/18 at 09:00 Acetaminophen/ Hydrocodone Bitart ([place] (5/325)) 1 tab Q6H PRN PO PAIN Last administered on 02/06/18 17:35; Admin Dose 1 TAB; Start 02/06/18 at 04:30 Lorazepam (Ativan) 1 mg HS PRN PO NEEDED Last administered on 02/07/18 00:08; Admin Dose 1 MG; Start 02/06/18 at 04:30 Pantoprazole (Protonix Tab) 40 mg AC BREAKFAST PO Last administered on 02/06/18 06:34; Admin Dose 40 MG; Start 02/06/18 at 07:30 Piperacillin Sod/ Tazobactam Sod 100 ml @ 200 mls/hr Q8 IVPB Last administered on 02/07/18 14:25; Admin Dose 200 MLS/HR; Start 02/06/18 at 14:00 Aspirin (Halfprin) 81 mg DAILY PO ; Start 02/07/18 at 09:00 Atorvastatin Calcium (Lipitor) 10 mg HS PO Last administered on 02/06/18 21:10; Admin Dose 10 MG; Start 02/06/18 at 21:00 Acetaminophen/ Hydrocodone Bitart ([place] (5/325)) 1 tab Q4 PRN PO MODERATE PAIN LEVEL 4-6 Last administered on 02/07/18 14:26; Admin Dose 1 TAB; Start 02/06/18 at 18:00 MILI CELESTE NP Feb 07, 2018 15:57
--- NOTE | 2018-02-07 17:13 | RADRPT ---
Echocardiogram Report Patient Name: BIANCA YATES Gender: Female Date: 1940 Study Date: 07-Feb-2018 News Production Supervisor: Mario Johnson [facility] Location: 2237-A Ref. Physician: SILVIA POOLE Quality: Adequate Procedures: Transthoracic echocardiogram with complete 2D, M-Mode, and doppler examination. Indications: Cerebrovascular Accident. 2D/M Mode Doppler Measurement Value Normal Ranges Measurement Value Normal Ranges LVIDd 2D 3.8 3.5 - 5.6 cm AV Peak Hunter 1.7 m/sec LVIDs 2D 2.5 2.1 - 4.1 cm AV Peak PG 11.0 mmHg FS 2D 35.3 % LVOT Peak Hunter 1.1 m/sec LVPWd 2D 1.0 0.6 - 1.1 cm LVOT Peak PG 5.0 mmHg IVSd 2D 0.8 0.6 - 1.1 cm MV E Peak Hunter 0.9 m/sec IVS/LVPW 2D 0.9 MV A Peak Hunter 1.0 m/sec AoR Diam 2D 2.2 2.0 - 3.7 cm MV E/A 1.0 LA/Ao 2D 1 0 - 1 MV Decel Time 176 msec EDV 2D 54.9 cm3 MV E/A 1.0 ESV 2D 14.9 cm3 LA Dimen 2D 2.7 2.3 - 4.0 cm Findings Left Ventricle: Normal left ventricular systolic function. Normal left ventricular cavity size. Normal left ventricular wall thickness. Ejection fraction is visually estimated at 60 %. Right Ventricle: Normal right ventricular size. Normal right ventricular systolic function. Left Atrium: The left atrium is normal in size. Right Atrium: The right atrium is normal in size. Atrial Septum: Normal atrial septum. Bubble study was performed with and with out valsalva indicating no evidence of intra atrial shunt. Mitral Valve: Normal appearance of the mitral valve. Trace mitral regurgitation. Aortic Valve: Normal appearance of the aortic valve. No aortic regurgitation. Tricuspid Valve: Normal appearance of the tricuspid valve. There is trace tricuspid regurgitation. Pericardium: Normal pericardium with no significant pericardial effusion. Aorta: Normal aortic root. IVC: Normal size and normal respiratory collapse consistent with normal right atrial pressure. Conclusions Normal left ventricular systolic function. Normal left ventricular cavity size. Normal left ventricular wall thickness. Ejection fraction is visually estimated at 60 %. Normal appearance of the mitral valve. Trace mitral regurgitation. Normal appearance of the aortic valve. No aortic regurgitation. Normal appearance of the tricuspid valve. There is trace tricuspid regurgitation. Normal atrial septum. Bubble study was performed with and with out valsalva indicating no evidence of intra atrial shunt. Electronically Signed By: Suraj Grayson 07-Feb-2018 17:12:42 -0800 Patient Name: BIANCA YATES Study Date: 07-Feb-2018 [id number]
--- NOTE | 2018-02-07 17:56 | PN ---
Date/Time of Note Date/Time of Note DATE: 02/07/18 TIME: 17:33 Assessment/Plan VTE Prophylaxis Risk score (from Ns)>0 risk: 4 SCD applied (from [facility] [place]): Yes Pharmacological prophylaxis: NA/contraindicated Pharm contraindication: bleeding Lines/Catheters IV Catheter Type (from [facility]): Saline Lock Assessment/Plan Problems: (1) Colitis, acute Status: Acute Comment: Discussed this case with gastroenterology. He feels it looks like ischemic colitis. Our options would be to have a surgeon see her or to do CT angiography to delineate and then decide. Since the patient stable this can be done as an outpatient and workup. 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) (3) Cholelithiasis Status: Chronic Comment: Noted Qualifiers: Cholelithiasis location: gallbladder Cholecystitis presence: without cholecystitis Biliary obstruction: without biliary obstruction Qualified Co chintan: K80.20 - Calculus of gallbladder without cholecystitis without obstruction Result Diagram: 02/07/18 0750 02/07/18 0750 Results 24hrs Laboratory Tests Test 02/07/18 00:03 02/07/18 07:50 02/07/18 12:28 Stool Occult Blood POSITIVE White Blood Count 15.9 H Red Blood Count 2.90 L Hemoglobin 9.6 L Hematocrit 28.2 L Mean Corpuscular Volume 97.2 Mean Corpuscular Hemoglobin 33.1 H Mean Corpuscular 34.0 Hemoglobin Concent Red Cell Distribution Width 12.8 Platelet Count 313 Mean Platelet Volume 10.1 Immature Granulocytes % 0.800 H Neutrophils % 75.1 Lymphocytes % 10.3 L Monocytes % 12.8 H Eosinophils % 0.7 Basophils % 0.3 Nucleated Red Blood Cells % 0.0 Immature Granulocytes # 0.120 H Neutrophils # 11.9 H Lymphocytes # 1.6 Monocytes # 2.0 H Eosinophils # 0.1 Basophils # 0.1 Nucleated Red Blood Cells # 0.0 Sodium Level 138 Potassium Level 3.7 Chloride Level 99 Carbon Dioxide Level 32 H Anion Gap 7 Blood Urea Nitrogen 9 Creatinine 0.80 Est Glomerular Filtrat Rate mL/min Glucose Level 125 # Calcium Level 8.5 Magnesium Level 2.3 Iron Level 14 L Total Iron Binding Capacity 238 L Percent Iron Saturation 6 L Vitamin B12 Level > 1000 H Folate 19.5 Bedside Glucose 94 Subjective 24 Hr Interval Summary Free Text/Dictation Patient reports she is feeling much better after the completion of the colonoscopy. Constitutional: no complaints Respiratory: no complaints Cardiovascular: no complaints Gastrointestinal: no complaints Genitourinary: no complaints Exam/Review of Systems Vital Signs Vitals Vital Signs Date Temp Pulse Resp B/P (MAP) Pulse Ox O2 O2 Flow FiO2 Time Delivery Rate 02/07/18 98.5 63 20 149/67 97 Room Air 14:44 (94) 02/05/18 3.0 19:20 Intake and Output 02/06/18 02/06/18 02/07/18 1515:00 23:00 07:00 IntakeIntake Total 340 ml 440 ml 420 ml BalanceBalance 340 ml 440 ml 420 ml Exam Constitutional: alert, oriented Cardiovascular: regular rate and rhythm, nl pulses Gastrointestinal: soft, nl liver, spleen, non-tender Medications Medications Current Medications IV Flush (NS 3 ml) 3 ml PER PROTOCOL IV ; Start 02/05/18 at 20:00 Ondansetron HCl (Zofran Inj) 4 mg Q6H PRN IV NAUSEA AND/OR VOMITING Last administered on 02/07/18at 13:23; Admin Dose 4 MG; Start 02/05/18 at 20:00 Acetaminophen (Tylenol Tab) 650 mg Q6H PRN PO PAIN LEVEL 1-3 OR FEVER Last administered on 02/06/18at 00:17; Admin Dose 650 MG; Start 02/05/18 at 20:00 Amitriptyline HCl (Elavil) 25 mg QHS PO Last administered on 02/06/18at 21:10; Admin Dose 25 MG; Start 02/06/18 at 21:00 Citalopram Hydrobromide (Celexa) 20 mg DAILY PO Last administered on 02/06/18at 09:36; Admin Dose 20 MG; Start 02/06/18 at 09:00 Acetaminophen/ Hydrocodone Bitart ([place] (5/325)) 1 tab Q6H PRN PO PAIN Last administered on 02/06/18at 17:35; Admin Dose 1 TAB; Start 02/06/18 at 04:30 Lorazepam (Ativan) 1 mg HS PRN PO NEEDED Last administered on 02/07/18at 00:08; Admin Dose 1 MG; Start 02/06/18 at 04:30 Pantoprazole (Protonix Tab) 40 mg AC BREAKFAST PO Last administered on 02/06/18at 06:34; Admin Dose 40 MG; Start 02/06/18 at 07:30 Piperacillin Sod/ Tazobactam Sod 100 ml @ 200 mls/hr Q8 IVPB Last administered on 02/07/18at 14:25; Admin Dose 200 MLS/HR; Start 02/06/18 at 14:00 Aspirin (Halfprin) 81 mg DAILY PO ; Start 02/07/18 at 09:00 Atorvastatin Calcium (Lipitor) 10 mg HS PO Last administered on 02/06/18at 21:10; Admin Dose 10 MG; Start 02/06/18 at 21:00 Acetaminophen/ Hydrocodone Bitart ([place] (5/325)) 1 tab Q4 PRN PO MODERATE PAIN LEVEL 4-6 Last administered on 02/07/18at 14:26; Admin Dose 1 TAB; Start 02/06/18 at 18:00 BRAD FONG MD Feb 07, 2018 17:56
[2018-02-07] MEDS ORDERED: SOD FERRIC GLUC COMPLX 125 MG in SOD CHLORIDE 0.9% 100 ML IVPB ONE (18:00)
--- NOTE | 2018-02-07 18:31 | NUR ---
EOSS: PATIENT HAD COLONOSCOPY PROCEDURE, RESUMED FULL LIQUID DIET, TOLERATED. MEDICATED ONCE FOR ABDOMINAL PAIN WITH NORCO, EFFECTIVE. NO NAUSEA/ VOMITING NOTED DURING THE SHIFT. FOR CTA ANGIOGRAM ORDERED. ASSISTED TO THE BATHROOM ON AND OFF. CALL LIGHT WITHIN REACH, INSTRUCTED PATIENT TO CALL FOR ASSISTANCE AT AL TIMES, BED ALARM ON. NEEDS ATTENDED.
[2018-02-07] MEDS: ACETYLCYSTEINE 600 MG CAP PO SCH (20:24)
[2018-02-07] MEDS: ATORVASTATIN 10 MG TAB PO SCH (20:24)
[2018-02-07] MEDS: AMITRIPTYLINE 25 MG TAB PO SCH (20:24)
[2018-02-07] MEDS ORDERED: SOD CHLORIDE 0.9% 100 ML ONE (20:53)
[2018-02-07] MEDS ORDERED: IOHEXOL 300MG/ML 150 ML BTL ONE (20:53)
--- NOTE | 2018-02-07 21:05 | NUR ---
Patient off unit at this time for CT scan. Patient with no signs of distress and vital signs stable. Will continue to monitor until patient's return.
[2018-02-07] MEDS ORDERED: IOHEXOL 100 ML ONE (21:13)
--- NOTE | 2018-02-07 21:45 | NUR ---
Patient returned from CT scan at this time. Patient with no signs of distress at this time.
--- NOTE | 2018-02-07 21:53 | NUR ---
Procedure Ordered: CT ABDOMINAL ANGIOGRAPHY W/RUN Reason for Exam Today: ISCHEMIC COLITIS Previous Exams: Allergies: NKDA Current Medications Taken: Glucophage ( ) Metformin ( ) Previous reaction to contrast media: Yes ( ) No ( X) : Yes ( ) No (X ) Asthma: Yes ( ) No (X ) Diabetes: Yes (X ) No ( ) Myeloma: Yes ( ) No (X ) Heart Disease: Yes ( ) No (X ) Cardiac Disease: Yes (X ) No ( ) Kidney Disease: Yes ( ) No ( X) Vascular Disease: Yes ( ) No ( X) Patient Teaching done: Yes (X ) No ( ) Mac Artist Used: Yes ( ) No ( ) Name of Mac Artist: Language Used: As part of the test requested by your doctor, contrast media may be injected into your vein while the x-rays are being taken. Occasionally, reactions from IV contrast may occur. The physician and staff of this hospital are trained to treat these reactions. Select the type of Contrast that will be given to patient: Isovue 300 ( ) Isovue 370 ( ) Visipaque ( ) Cystografin ( ) Gastrographin ( ) Redi-cat ( ) Volumen ( ) OMNIPAQUE 350 (X) Amount of contrast to be given: 98 ML IV (X ) PO ( ) Date given: 02/07/18 Lab Values: BUN: 9 Creatinine: 0.80 Reason why contrast cannot be given: Location of patient pre-procedure: Location of patient post procedure:
--- NOTE | 2018-02-07 22:00 | NUR ---
Patient returned from CT scan at this time. Patient with no signs of distress at this time. Safety precautions and hourly rounding currently in place.
[2018-02-08] MEDS: HYDROCODONE/APAP (5/325) TAB PO PRN ×3 (01:32→10:26)
[2018-02-08 02:00] VITALS: BP 140/65; PULSE 96; RESP 18
[2018-02-08] MEDS: PIPER-TAZO 3.375 GM IV (PMX) 100 ML IVPB SCH (06:10)
--- NOTE | 2018-02-08 06:31 | NUR ---
Patient in room asleep with no signs of distress. Vital signs stable. Patient complained of pain this shift. Administered norco per MD order; patient denied pain thereafter. No other changes otherwise noted. All needs met and medications administered. Patient turned every 2 hours and OOB this shift. Safety precautions and hourly rounding in place until change of shift.
[2018-02-08 07:20] VITALS: BP 101/53; PULSE 85; RESP 16
[2018-02-08] MEDS: ASPIRIN (EC) 81 MG TAB PO SCH (08:14)
[2018-02-08] MEDS: PANTOPRAZOLE (EC) 40 MG TAB PO SCH (08:14)
[2018-02-08] MEDS: CITALOPRAM 20 MG TAB PO SCH (08:14)
[2018-02-08] MEDS: ACETYLCYSTEINE 600 MG CAP PO SCH (08:14)
--- NOTE | 2018-02-08 10:03 | PDOCDIS ---
Discharge Instructions DIAGNOSIS Discharge Diagnosis Acute colitis of the descending colon; urinary tract infection; dehydration; cholelithiasis; hiatal hernia; lower GI bleed; iron deficiency anemia; osteoarthritis with ambulatory instability chronically CONDITION [id number] Patient Condition: [id number] Fair HOME CARE INSTRUCTIONS: Bertrand Diet Instructions: Kelvin Regular ACTIVITY: [id number] Activity Restrictions: Kelvin Slowly Increase Activity Do not operate Machinery Do not operate Power Tool FOLLOW UP/APPOINTMENTS Follow-up Plan Primary care physician and licensed midwife near her home in [facility] BRAD FONG MD Feb 08, 2018 10:03
--- NOTE | 2018-02-08 10:03 | DS ---
Date/Time of Note Date/Time of Note DATE: 02/08/18 TIME: 09:57 Discharge Summary Admission/Discharge Info Admit Date/Time Feb 05, 2018 at 18:44 Discharge Date/Time February 08, 2018 Discharge Diagnosis Acute colitis of the descending colon; urinary tract infection; dehydration; cholelithiasis; hiatal hernia; lower GI bleed; iron deficiency anemia; osteoarthritis with ambulatory instability chronically Patient Condition: Fair Consults Gastroenterology-Dr. Mata; infectious disease-Dr. Mattson Procedures Echocardiogram with bubble study-Conclusions Normal left ventricular systolic function. Normal left ventricular cavity size. Normal left ventricular wall thickness. Ejection fraction is visually estimated at 60 %. Normal appearance of the mitral valve. Trace mitral regurgitation. Normal appearance of the aortic valve. No aortic regurgitation. Normal appearance of the tricuspid valve. There is trace tricuspid regurgitation. Normal atrial septum. Bubble study was performed with and with out valsalva indicating no evidence of intra atrial shunt. CT angiography of the abdomen-IMPRESSION: 1. Negative CT angiography. The mesenteric arteries are widely patent. 2. Persistent continuous mural thickening involving the splenic flexure, sigmoid, descending colon, consistent with an indeterminate colitis. Background of diffuse moderate diverticulosis is again noted. 3. Mildly increased trace left pleural effusion. CT scan of the abdomen-MPRESSION: 1. Acute colitis involving the left colon with differential diagnosis including infectious colitis. Considering the distribution of the inflammation, ischemic colitis also in the differential consideration. 2. Multiple sigmoid diverticulosis. 3. Small amount of free pelvic fluid. 4. Nonobstructive 7 mm stone in the lower pole of right kidney. 5. Cholelithiasis versus gallbladder sludge. 6. Trace left-sided pleural effusion. 7. Large hiatal hernia. 8. Convex right scoliosis of the lumbar spine with associated multilevel degenerative disc disease. Carotid duplex study negative Hx of Present Illness HPI 77-year-old woman presents with dizziness, generalized weakness, and confusion for the last 2-3 days. Patient also complains of left shoulder pain after bumping into the door a few times over the last couple days because of dizziness and weakness. About 3 days ago patient was given a prescription for [place] as well as pregabalin which she has been using for recent back pain. She has not used opioid analgesics for over 3 years and is generally opioid jennifer. She denies recent head or neck injury, no vomiting or diarrhea, no chest pain or shortness of breath Hx of Present Illness Chief complaint: Dizziness generalized weakness, confusion 77-year-old woman presents with dizziness, generalized weakness, and confusion for the last 2-3 days. Patient also complains of left shoulder pain after bumping into the door a few times over the last couple days because of dizziness and weakness. About 3 days ago patient was given a prescription for [place] as well as pregabalin which she has been using for recent back pain. She has not used opioid analgesics for over 3 years and is generally opioid jennifer. She denies recent head or neck injury, no vomiting or diarrhea, no chest pain or shortness of breath. After being admitted patient continued to demand her [place] as well as her Benadryl and Ativan as she has been dealing with a lot of anxiety all her life secondary to the of her daughter as well as regarding her sciatica. Patient was very upset that she was not receiving all of her medications. I had an extensive discussion with the patient at the bedside at which time patient was alert and oriented x3. She did report that she has been under stress as she is worried about her who is in [place]. At the current time she does appear awake and alert and at what appears to be her baseline. I have continue the [place] for her, however I will hold off on the pregabalin at the current time and the Benadryl. Hospital Course [facility] 77-year-old female admitted as above. She stabilized nicely and had careful evaluation performed. C. difficile was negative and abdominal angiography was fortunately negative. He is improved significantly is now stable for discharge and will follow up with her regular senior net developer architect near her home. Markedly improved as compared to the time of admission she has no known communicable diseases she is not hazard to herself or others for rehabilitation potential is fair Home Meds Active Scripts Hydrocodone/Acetaminophen ([place] 5-325 Tablet) 1 Each Tablet, 1 TAB PO Q6H PRN for PAIN, #7 TAB Prov:ERIKA MARSH MD 01/21/18 Reported Medications Diphenhydramine Hcl* (Benadryl*) 25 Mg Cap, 25 MG PO Q6H PRN for ITCHING, CAP 02/05/18 Pregabalin* (Lyrica*) Unknown Strength Capsule, PO, CAP 02/05/18 Methylprednisolone* (Medrol* DOSE PACK) 4 Mg/Dose-Pack Tab.ds.pk, 4 MG PO . DIRECTED, PACKET 02/05/18 Lorazepam* (Lorazepam*) 1 Mg Tablet, 1 MG PO HS PRN for NEEDED, #30 TAB 02/05/18 Rosuvastatin Calcium* (Crestor*) 10 Mg Tablet, 10 MG PO QHS, #30 TAB 02/05/18 Amitriptyline Hcl* (Amitriptyline Hcl*) 25 Mg Tablet, 25 MG PO QHS, #30 TAB 02/05/18 Citalopram Hydrobromide* (Citalopram Hydrobromide*) 20 Mg Tablet, 20 MG PO DAILY, #30 TAB 02/05/18 Pantoprazole* (Pantoprazole*) 40 Mg Tablet.dr, 40 MG PO AC BREAKFAST, TAB 02/05/18 Celecoxib* (Celebrex*) 100 Mg Capsule, 100 MG PO DAILY, CAP 02/05/18 Follow-up Plan Primary care physician and senior net developer architect near her home in [facility] Primary Care Provider Not On Staff Doctor Time spent on discharge: > 30 minutes Pending Labs Laboratory Tests Test 02/07/18 12:28 Bedside Glucose 94 mg/dL (70-220) BRAD FONG MD Feb 08, 2018 10:03
[2018-02-08] MEDS ORDERED: ASPI-1044 PO (10:05)
[2018-02-08] MEDS ORDERED: FER325 PO (10:05)
--- NOTE | 2018-02-08 12:56 | NUR ---
rn notes patient discharged home, stable condition, discharge instructions and follow up instructions given to patient. patient's belongings and valuables returned. IV line removed. discharge via wheel chair followed by family members and escorted by volunteer.
== END 2018-02-08 12:50 | disposition home or self-care (01) | DRG 872 ==
LOC: E/R 14:02 → PP2 18:44
PROVIDERS: ADMIT Internal Medicine; ATTEND Internal Medicine
PROC: 0DJD8ZZ Inspection of Lower Intestinal Tract, Via Natural or Artificial Opening Endoscopic (ICD-10-PCS; principal; 2018-02-07 12:30)
DX: A41.9 Sepsis, unspecified organism (principal); K55.9 Vascular disorder of intestine, unspecified; N17.9 Acute kidney failure, unspecified; N39.0 Urinary tract infection, site not specified; K92.1 Melena; E78.00 Pure hypercholesterolemia, unspecified; E86.0 Dehydration; E11.9 Type 2 diabetes mellitus without complications; F32.9 Major depressive disorder, single episode, unspecified; K57.30 Diverticulosis of large intestine without perforation or abscess without bleeding; D53.1 Other megaloblastic anemias, not elsewhere classified; K44.9 Diaphragmatic hernia without obstruction or gangrene; K80.20 Calculus of gallbladder without cholecystitis without obstruction; M41.86 Other forms of scoliosis, lumbar region; M51.16 Intervertebral disc disorders with radiculopathy, lumbar region; D50.0 Iron deficiency anemia secondary to blood loss (chronic); M25.512 Pain in left shoulder
CPT/HCPCS: 36415; 70450; 71045; 74177; 75635; 80048; 80053; 80061; 81001; 82270; 82607; 82746; 82962; 83036; 83540; 83605; 83690; 83735; 84436; 84443; 84479; 84484; 85025; 85610; 85651; 85730; 86140; 87040; 87075; 87086; 93005; 93306; 93880; 96365; 96375; 97163; J0696; J2001; J2270; J2405; J2543; J2916; J3010; J7030; Q9967